=== PATIENT | male | born 1990 | race Asian ===

== ENCOUNTER 2023-08-12 13:45 | Outpatient (CLI) | payer OTHER ==
--- NOTE | 2023-08-12 14:36 | Sleep Patient Instructions ---
Sleep Center Visit Summary - Patient Visit Information Reason for Visit: Initial consult for evaluation of sleep disordered breathing and other sleep issues. - Patient Instructions Instructions Attached: Sleep Study Home Monitor Additional Instructions: You will be completing a sleep study, either an in-lab polysomnography (PSG) or home sleep study (HST). You will follow-up in the sleep care office after the sleep study is completed to hear the results and talk about therapy, if needed. You will be called by our office staff to schedule this appointment, but you may contact us with any questions. - Clinic Information Contact: [facility] [address] [place] [address] [email or web address] T: [phone]
--- NOTE | 2023-08-12 14:39 | SLEEP CARE CONSULTATION ---
Information from patient questionnaire entered by Juventino Zaragoza. I have reviewed and concur with the information entered by Juventino Zaragoza. This document represents the service I personally performed and the decisions made by me, Alina Richey ARNP. History of Present Illness Service Date and Time: 08/12/2023 1345 Reason for Visit: New patient Chief Complaint: reports: Snoring, Observed pauses in breathing, Other (Groaning in sleep) Date of Onset: 1 or 2 years Usual bedtime: 10 PM Time it takes to fall asleep: 1 or 2 hours Snores at night: Yes Observed to quit breathing while asleep: Yes Sleeps alone due to snoring: Yes Number of times waking at night: 3 - 5 times Reasons for waking at night: reports: Gasping for air, Bathroom. denies: Choking, Snoring Toss, Turn, or Twitch while sleeping: Yes Recalls having dreams: Yes Usually gets out of bed at: 5 AM; weekends 08-0900 Feels refreshed in the morning: No Morning headache: Yes (4-5 days a week; resolves "After I take a shower") Sleepy or fatigued during the day: No Ever fallen asleep while driving: No Takes day naps: No Dreams during day naps: Yes Prior sleep studies: No Additional HPI information: I had the pleasure of seeing ÁLVARO TURNER today regarding the possibility of him having a sleep disorder. His current complaints are observed pauses in breathing, snoring and groaning in sleep. He says about 2 years ago he started making sounds, snoring and sometimes he will be woken up because he stopped breathing. He says for the last year he is dreaming about "waking up" after he has stopped breathing and finding out he is still dreaming and not awake. He feels his snoring, etc seems to be getting worse in the last year. He does not wake up feeling refreshed and is fatigued during the day. 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. Patient is and lives in [place]. Have you smoked in the past 12 months: No Alcohol use: Yes Alcohol amount and frequency: 1 to 3 cans of beer occasionally (1 or 2 a month) Caffeine use: Yes Caffeine amount and frequency: 1 cup (10 oz) once a day Family History Family history of sleep disordered breathing: No Allergies and Home Medications Known drug allergies: No Drug allergies reviewed: Yes Home medication list reviewed: Yes Allergy and home medication list: Allergies No Known Drug Allergies Allergy (Verified 08/12/23 14:29) Home Medications No Known Home Medications 08/12/23 [History] Review of Systems Weight gain over past 5 years: 30 lbs Cardiovascular: denies: high blood pressure Gastrointestinal: denies: heartburn Urinary: reports: urgency Neurological: denies: headaches, head trauma Psychiatric: denies: anxiety, depression Ear/Nose/Throat: denies: injury to nose, tonsillectomy Musculoskeletal: reports: back pain, muscle pain or cramping Physical Exam Vital signs obtained and entered by: Alina Myles NP Blood Pressure: 99/65 Cuff size: long (left arm) Heart Rate: 62 O2 Saturation: 100 Height: 5 ft 9 in Weight: 174 lb 9.6 oz Body Mass Index: 25.7 BMI Classification: Overweight Neck circumference: 15.75 (inches) Nostrils: patent to airflow Mouth and throat: narrow oropharynx Soft palate: long Hard palate: normal Uvula: normal Uvula visualization: 50% Mallampati Class II Tongue: enlarged in size with teeth bradley on lateral edges Tonsils: small Neck: normal w/o lymphadenopathy or thyromegaly Heart: regular rate and rhythm Lungs: clear bilaterally Impression and Plan 1. Suspected Obstructive Sleep Apnea-Hypopnea Syndrome, as suggested by a history of loud and irregular snoring, observed cessation of breath while asleep, gasping or choking in sleep, morning headache, frequent awakening during the night, unrefreshed sleep, and excessive daytime sleepiness. Narrow oropharynx and obesity are common predisposing factors for obstructive sleep apnea-hypopnea syndrome. I recommend proceeding to polysomnography to confirm the diagnosis and to assess severity. If the patient has significant sleep disordered breathing, a manual CPAP titration study will also be performed to find the optimal treatment pressure. I informed the patient of what the sleep studies involve and after some discussion, obtained agreement to proceed. The pathophysiology of obstructive sleep apnea-hypopnea syndrome was discussed with the patient and health risks of cardiovascular and cerebrovascular disease if not treated. Risks of drowsy driving discussed in detail and patient advised to avoid long distance driving and to test puller at the first sign of drowsiness. Patient agreed to plan. * Schedule polysomnography * Avoid long distance driving or driving when feeling sleepy. * Avoid alcohol, sedative and muscle relaxant around bedtime. * Attempt to lose weight. * Review instructions provided by trained office staff on how to prepare for the sleep study. * Return for follow-up after sleep study completed. Counseling Topics: Weight control Plan: PSG/HST and follow up Visit Type: In Office Time Spent with Patient (minutes): 30 Provider Statement: I spent 100% of the Face to Face Visit with the patient with greater than 50% spent counseling the patient and coordination of care.
[2023-08-12 14:48] VITALS: BP 99/65; O2SAT 100
== END 2023-08-12 13:46 | disposition home or self-care (01) ==
LOC: SC 13:45
PROVIDERS: ATTEND Nurse Practitioner Family
DX: R06.83 Snoring (principal); R06.81 Apnea, not elsewhere classified; G47.8 Other sleep disorders; R51.9 Headache, unspecified; G47.10 Hypersomnia, unspecified
CPT/HCPCS: 99203; 99212

== ENCOUNTER 2023-08-25 13:54 | Outpatient (CLI) | payer OTHER | END 2023-08-25 13:55 | disposition home or self-care (01) | LOC: SC 13:54 | PROVIDERS: ATTEND Nurse Practitioner Family | DX: G47.33 Obstructive sleep apnea (adult) (pediatric) (principal); R09.02 Hypoxemia | CPT/HCPCS: 95806 ==

== ENCOUNTER 2023-09-03 10:45 | Outpatient (CLI) | payer OTHER ==
--- NOTE | 2023-09-03 16:06 | XRAY Report ---
PROCEDURE Spine 2-3V INDICATIONS: BACK PAIN, LOW TECHNIQUE: 2 views of the lumbar spine were acquired. COMPARISON: None. FINDINGS: Surgical change: None. Bones: 5 [id number] vertebrae are present. There is normal bony alignment. No vertebral body co mpression fractures. No suspicious bony lesions. Soft tissues: Overlying bowel gas pattern is unremarkable. IMPRESSION: No acute osseous abnormality Reviewed by: César Ugarte MD on 09/03/2023 4:05 PM PDT Approved by: César Ugarte MD on 09/03/2023 4:05 PM PDT Station ID: [id number]
== END 2023-09-03 11:00 | disposition home or self-care (01) ==
LOC: DI.N 10:45
PROVIDERS: ATTEND Physician Assistant Medical
DX: M54.50 Low back pain, unspecified (principal)

== ENCOUNTER 2023-09-30 13:41 | Outpatient (CLI) | payer OTHER ==
--- NOTE | 2023-09-30 14:05 | Sleep Patient Instructions ---
Sleep Center Visit Summary - Patient Visit Information Reason for Visit: Sleep study follow-up - Patient Instructions Instructions Attached: CPAP Additional Instructions: You are being started on CPAP therapy with pressure setting at 4-15 cmH2O. You will need to call the sleep care office to set up your follow up once you have your CPAP machine to check compliance and response to therapy at that time. You may call the office with any concerns about pressure feeling too low or too much for adjustment, if needed. You should contact DME supplier for any questions or concerns about mask or equipment. Please call office to schedule a follow up appointment in the sleep care office one month after obtaining new device. - Clinic Information Contact: [facility] [address] [place] [address] [email or web address] T: [phone]
--- NOTE | 2023-09-30 14:07 | SLEEP CARE CONSULTATION ---
Information from patient questionnaire entered by Kenyatta Pepper. I have reviewed and concur with the information entered by Kenyatta Pepper. This document represents the service I personally performed and the decisions made by me, Alina Richey ARNP. History of Present Illness Service Date and Time: 09/30/2023 1341 Initial [place] Sleepiness Scale score: 15 (in 2023) Current [place] Sleepiness Scale score: 15 (09/30/23) Additional HPI information: [facility] returns for follow up and results of the recently performed home sleep study. The sleep study done on 08/26/2023 showed mild obstructive sleep apnea with an average AHI of 12.4 and josue oxygen saturation of 86%. I explained the pathophysiology behind obstructive sleep apnea. We then spent quite a bit of time discussing different treatment options. For mild obstructive sleep apnea, surgery and oral appliance are alternatives to nasal CPAP therapy but in moderate or severe cases, nasal CPAP is the most effective and reliable treatment. Because apnea is primarily in supine position, then positional management therapy could be effective. Methods discussed such as positioning with pillows, using a T-shirt with tennis balls in the back or commercial products that have a pillow format on back to prevent supine sleep. I reviewed the impact of weight changes on sleep apnea and strongly recommended losing weight. After some discussion, the patient opted to go with the nasal CPAP therapy. Nasal autoCPAP set at 4-15 cmH20 will be ordered with rationale explained. A manual titration study will be ordered if unable to find optimal pressure with office adjustments. I explained how CPAP machine works and what to expect when using the machine. Using CPAP every night in order to get used to it was emphasized. Patient advised to put CPAP mask on before getting into bed so as not to fall asleep without CPAP. To assist acclimation to CPAP use, it could also be used for a short time during day while reading or watching TV. The patient was instructed to call the CPAP supplier to discuss any mechanical problem that may occur. If the mask given is uncomfortable or is difficult to keep on through the night even with adjustment, contact the CPAP supplier as shy lopez will replace with another mask style if notified before 30 days. If snoring or perceives is not getting enough air or too much air from the machine, notify this office. Patient does not drink alcohol. Patient was cautioned about risks of drowsy driving until sleepiness symptoms resolve. Patient denies drowsy driving. Sleep Study - Results Type of Sleep Study: Home sleep study (COMPLETED 08/26/23) Prior sleep studies: No Polysomnography/Home Sleep Study results: Physician Impression: The quality of the study is good. The length of the study is adequate (> 240 minutes). Please also see the tabulated and graphic data. 1. Obstructive Sleep Apnea-Hypopnea (ICD-10 G47.33), mild, with an AHI of 12.4/hr and josue SaO2 of 86%. During the study, the patient had 88 apneas (88 obstructive, 0 central, 0 mixed) and 17 hypopneas. The longest episode lasted 53.5 seconds. The respiratory events occurred almost exclusively during supine sleep (supine AHI was 18.1 and non-supine, 4.40). 2. Hypoxemia (ICD-10 R09.02), mild, with the lowest oxygen saturation of 86 % and 11.0 minutes with SaO2 under 90%. Baseline oxygen saturation was normal (Average oxygen saturation was 94%). Allergies and Home Medications Known drug allergies: No Drug allergies reviewed: Yes Home medication list reviewed: Yes (no changes) Allergy and home medication list: Allergies No Known Drug Allergies Allergy (Verified 09/30/23 13:45) Review of Systems Review of systems same as previous: Yes (NO CHANGE) Physical Exam Vital signs obtained and entered by: KENYATTA Brandt MA Blood Pressure: 118/68 (LEFT ARM) Cuff size: regular Heart Rate: 76 O2 Saturation: 98 Height: 5 ft 9 in Weight: 176 lb 6.4 oz Body Mass Index: 26.0 BMI Classification: Overweight Impression and Plan 1. Obstructive Sleep Apnea-Hypopnea Syndrome, mild, with lowest oxygen saturation of 86%. Obviously this is the cause of the patients symptoms of unrefreshed sleep, and excessive daytime sleepiness. As mentioned above, the patient will be started on nasal autoCPAP therapy with pressure set at 4-15 cmH2 O. A manual titration study will be completed if unable to find optimal treatment pressure with office adjustments. Compliance guidelines also reviewed. A copy of compliance guidelines will be given for reference at check out. Because the apnea is more severe supine, I instructed to avoid sleeping supine using pillow positioning until able to start CPAP use. 2. Hypoxemia, mild, with a josue oxygen saturation of 86% and 11 minutes spent under 90%. The baseline oxygen saturation was normal with an average oxygen saturation of 94%. 3. Overweight, minimal, unspecified. Currently patients BMI is 26. Obesity increases the risk of apnea, CPAP pressure requirements and overall health risks especially cardiovascular and diabetes. Thus patient is advised to maintain a healthy weight. * Nasal auto CPAP therapy, pressure at 4-15 cmH2O. * Maintain a healthy weight. * Avoid supine sleep until using CPAP. * The patient is again cautioned about driving until sleepiness completely resolves. * Return one month after CPAP obtained. I will assess response to therapy and compliance at that time. Counseling Topics: Sleeping position, Weight control Prescriptions: Auto CPAP Plan: start CPAP and compliance follow up Visit Type: In Office Time Spent with Patient (minutes): 20 Provider Statement: I spent 100% of the Face to Face Visit with the patient with greater than 50% spent counseling the patient and coordination of care.
[2023-09-30 14:12] VITALS: BP 118/68; O2SAT 98
== END 2023-09-30 13:42 | disposition home or self-care (01) ==
LOC: SC 13:41
PROVIDERS: ATTEND Nurse Practitioner Family
DX: G47.33 Obstructive sleep apnea (adult) (pediatric) (principal); R09.02 Hypoxemia; E66.3 Overweight; Z68.26 Body mass index [BMI] 26.0-26.9, adult
CPT/HCPCS: 99212; 99213

== ENCOUNTER 2023-10-03 10:21 | Outpatient (CLI) | payer OTHER ==
[~2023-10-03 10:21] MED LIST: GADOTERATE MEGLUMINE 7.5 MMOL/15 ML VIAL ONE
[2023-10-03] MEDS: GADOTERATE MEGLUMINE 7.5 MMOL/15 ML VIAL IVP ONE (11:31)
--- NOTE | 2023-10-04 12:19 | MRI Report ---
PROCEDURE: IAC'S W/WO INDICATIONS: DIZZINESS CONTRAST: CLARISCAN 15ML TECHNIQUE: Noncontrast sagittal T1 spin echo, axial FLAIR, axial gradient echo, axial diffusion and ADC through the brain. Axial thin-slice 3D CISS, coronal balanced GE, axial T1 spin echo with fat saturation thr ough the internal auditory canals. After the administration of contrast, thin slice axial and kulkarni l T1 spin echo with fat saturation through the internal auditory canals, and axial T1 spin echo with fat saturation through the brain. COMPARISON: None. FINDINGS: Image quality: Diagnostic, with note made of motion artifact, particularly on the postcontrast image s. Cerebellopontine angles: No cerebellopontine angle masses. Inner ear structures appear normally for med. No suspicious enhancement in the internal auditory canal or along the course of the 7th cranial nerve. CSF spaces: Ventricles are normal in size and shape. No extra-axial fluid collections. Basal ciste rns are patent. Brain: No intracranial bleeds or mass effects. Castro-white matter interface is intact. No abnormal intracranial enhancement. Diffusion weighted images demonstrate no acute ischemic insults. Brainste m appears normal. Normal intravascular flow voids are present. Skull and face: Calvarial marrow signal is normal. Orbits appear normal. Sinuses: Sinuses and mastoids are clear. IMPRESSION: No imaging explanation is found for the patient's presenting symptoms. Specifically, no findings of masses or abnormal enhancement can be found within the internal auditory canals or the ce rebellopontine angle cisterns. Reviewed by: Hank Membreno MD on 10/04/2023 11:18 AM HOOD Approved by: Hank Membreno MD on 10/04/2023 11:18 AM HOOD Station ID: [id number]
== END 2023-10-03 10:22 | disposition home or self-care (01) ==
LOC: DI 10:21
PROVIDERS: ATTEND Student in an Organized Health Care Education/Training Program
DX: R42 Dizziness and giddiness (principal)